=== PATIENT | female | born 1955 | race Caucasian/White ===

== ENCOUNTER 2020-10-17 10:30 | Outpatient (RCR) | payer OTHER, SELFPAY ==
--- NOTE | 2020-09-20 16:57 | HP.PTEVAL ---
Patient's Visit Information ASTON NAPOLES is a 65 year old F referred to Physical Therapy by Dr. Addison Garrison DPM with a diagnosis of B achilles tendonitis. Date of Evaluation: 09/20/20 Physical Therapist: Russ Sterling DPT - Visit Plan Frequency: 2x /Week Duration: 4 Weeks Plan: Start with graston DN followed by stretching of G/S complex. Progress eccentric strengtheing of G/S complex allowing for increased tissue loading of achilles tendon. - Subjective Pt. is here today for her initial evaluation for diagnosis of B achilles tendonitis. Pt. reports that most of her symptoms are on the LLE, but does have some pain on the R side at times. Pt. reports having pain for a few years, but has been noticing increased pain in her L leg over the past few months. She denies [facility] of [facility], no N/T. Pt. has had Xrays- showing B calcaneal heel spuring, L worse than R. Pt. reports being less active recently, as she used to walk recreationally, but stopped with COVID, pain and she used to walk her dog (which is no unable to walk well). Pain is mostly in LLE at distal end of achilles. Pt. has increased pain with walking, stairs, worse in the AMs. Pt. has not tried stretching, but has basically reduced irritants. She did have a L knee arthoscopy ~1 year previously. pt. is hopeful to improved symptoms in order to get back to all recreational walking and activities without limitations. - Pain L achilles tendon Pain Intensity (Out of 10): 3 Pain Intensity Range: 1, 8 R achilles Pain Intensity (Out of 10): 0 Pain Intensity Range: 0, 4 - Objective POSTURE: Pt. has decent posture in stance. Pt. has slight toeing out B in stance. Pt. is lacking slight TKE bilaterally, equal wt. shifting noted. PALPATION: Pt. has tenderness at distal ends of B achilles, She has a marked what feels to be a george hypertrophy in the L side at superior aspect of calcaneus. NEURO: normal DTR and sensation to light touch of BLEs. ROM: Pt. has full ROM of R ankle, slight tightness of L ankle into DF 8deg active and 12deg passive. L Knee ROM 0-3-122deg. R knee 0-0-127deg. MMT: Pt. has good strength throughout BLEs, ankle 5/5 throughout; knee- 5/5 throughout Bilat. HIp- flexion 4/5 bilat, abd 4/5 bilat, ext 4/5 bilat. GAIT: Pt. ambulates with good initial contact with her heels bilaterally, she has minimal if any over pronation during stance phase. She does have slight toeing out bilaterally and good forefoot rocker moment with slight early heel off on L side. - Goals Goal 1:: LTG: pt. to be I with HEP. Goal Time Frame: 4-6 Weeks Goal 2:: STG: pt. to have decreased pain to 0-2/10 with initial walking in AMs. Goal Time Frame: 2 Weeks Goal 3:: LTG:Pt. to ambulate unlimited distances with 0-2/10 pain in B achilles allowing for increased quality of life. Goal Time Frame: 4-6 Weeks Goal 4:: LTG: Pt. be able to negotiate steps with 1 HR with reciprocal pattern without increase in symptoms. Goal Time Frame: 4-6 Weeks - Rehabilitation Potential Physical Therapy Diagnosis: Pt. has signs and symptoms of B achilles tendonitis with L worse than R. Pt. has some tightness in her L gastroc/soleus complex, increased george growth at L calcaneus and pain with walking/standing. Pt. would benefit from PT to work on increasing tissue loading of achilles (eccentrically) to build tissue tolerance, stretching G/S complex and modalities to reduce short term symptoms. Rehabilitation Potential: Excellent - Anticipated Interventions Patient/Client Instruction: Educate patient on: Condition, Plan of Care, Risk Factors, Benefits of Fitness Program For the Purpose of:: To facilitate caregiver knowledge, To improve self management, To prevent re-injury, To improve ability to perform tasks related to life management, To improve tolerance to ADL's Therapeutic Exercise to Include: Strength training, Power training, Body mechanics, Postural training, Flexibilty training, Gait and locomotor training, Passive ROM, Active ROM For the Purpose of:: To decrease pain, To decrease swelling/inflammation, To increase ROM, To improve nutrient delivery to tissue, To increase oxygenation perfusion, To improve muscle performance and motor function, To improve gait and locomotor functions, To improve health of tissue, To decrease soft tissue restriction, To increase flexibility/ROM Manual Therapy Techniques to Include: Passive ROM, Functional dry needling, Soft tissue mobilization For the Purpose of:: To decrease pain, To decrease swelling/inflammation, To increase ROM, To improve nutrient delivery to tissue Ultrasound (thermal/non thermal): Yes For the Purpose of:: To decrease pain, To decrease swelling/inflammation, To increase ROM, To improve nutrient delivery to tissue Thank you for the opportunity to evaluate your patient. For Medicare and Medicare HMO plans, please review the plan of care and approve it. It will need to be FAXED BACK to us at [phone] for Medicare purposes. For Medicare only, by signing this I certify the plan of care. Please let me know if there are questions or concerns regarding this plan of care. Physician Signature: Date:
== END 2020-10-17 19:00 | disposition home or self-care (01) ==
LOC: PT 10:30
PROVIDERS: PCP Internal Medicine; Referring Provider Podiatrist; Visit Provider Podiatrist
DX: M76.61 Achilles tendinitis, right leg (principal); M76.62 Achilles tendinitis, left leg
CPT/HCPCS: 97035; 97110; 97161

== ENCOUNTER 2020-10-18 09:33 | Emergency (ER) | payer OTHER, SELFPAY ==
[2020-10-18 09:34] VITALS: BP 145/101; PULSE 101; RESP 17; TEMP 37.3; O2SAT 98; BMI 36.5
--- NOTE | 2020-10-18 09:50 | ED.DCSUM_ITS ---
History of Present Illness Chief Complaint: Allergic Reaction Informant: Patient Onset: Days Maximum Severity: Mild Narrative: The patient presents complaining that after she took a nitrofurantoin antibiotic tablet for UTI few hours later she began having signs of facial swelling tongue swelling diarrhea. She took Benadryl presents today reporting no symptoms are better she still has UTI symptoms. She is not having dysuria and frequency for a number of days she has been unable to actually see her provider so they sent in a prescription for nitrofurantoin as she has no allergies she took 1 pill 4 PM yesterday a few hours later began having the symptoms that again have simply resolved. She indicates she is back to her baseline but is concerned she still has a UTI she is prone to UTIs, she is having no back pain no fever no abdominal pain no cough no vaginal bleeding or vaginal discharge, she has had distant [employer] vaginal checks Pap smears that were unremarkable Past Medical History - Allergies and Home Meds Allergies/Adverse Reactions: Allergies latex Allergy (Verified 10/18/20 09:34) Rash nitrofurantoin [From Macrobid] Allergy (Verified 10/18/20 09:34) Angioedema Primary Care Physician: Vikki Smith DO [Primary Care Provider] - Past Medical History: - - Hypertension UTIs Review of Systems General: Denies: Chills, Fever, Sweats Eyes: Denies: Visual changes - bilaterally, Diplopia ENT: Denies: Rhinorrhea, Sore throat Cardiovascular: Denies: Chest pain, Palpitations Respiratory: Denies: Dyspnea, Cough, Dyspnea on exertion Gastrointestinal: Denies: Abdominal pain, Nausea, Vomiting, Diarrhea, Melena, Hematochezia Genitourinary: Reports: Dysuria, Frequency. Denies: Hematuria Musculoskeletal: Denies: Back pain, Extremity Pain Skin: Denies: Rash, Wounds Neurological: Denies: Headache, Weakness, Numbness Physical Exam Vital Signs/Narrative: Vital Signs Temp Pulse Resp BP Pulse Ox 10/18/20 09:34 99.2 F H 101 H 17 145/101 H 98 General: Well nourished, Well developed, No Acute Distress Head: Normocephalic, Atraumatic Eyes: Perrl, EOMI ENT: Moist mucous membranes, No rhinorrhea Neck: Supple, Nontender Cardiovascular: Regular rate, Regular rhythm, No murmurs Respiratory: No distress, CTA bilaterally, Chest nontender Abdomen: Soft, Nontender, Nondistended, Normal bowel sounds Back: Nontender, Normal Inspection Extremities: Nontender, No edema Skin: Normal color, No rash Neurological: Alert, Oriented x3, Cranial nerves II-XII grossly intact, Normal Strength, Normal Sensation Psychological: Normal affect, Normal Mood Diagnostic/Tx/Re-eval - Medical Decision Making The patient's HEENT exam is unremarkable her tongue tissue mouth pharynx unremarkable no signs of swelling or edema neck supple lungs clear phonation normal skin exams unremarkable as is the back abdomen completely unremarkable, her only complaint at this time is the dysuria and frequency, she has been taking Benadryl, please note that she indicates nothing else could have caused the above symptoms as it was temporally related to the nitrofurantoin dose all other medications food activities have been unchanged I have asked her to provide a urine sample for UA and culture she states she just voided urine she cannot do that she simply wants the antibiotics changed she will stay on the Benadryl follow-up with outpatient providers and return for change in symptoms otherwise she indicates she prefers to see her outpatient providers for further management of all the above she will obviously stop the antibiotic nitrofurantoin Home stable Final impression urinary tract infection by history ED Disposition - Plan for ED Patient: Diagnosis: UTI (urinary tract infection) Instructions: ED Angioedema, ED General Allergic Reactions, ED CYSTITIS Female Adult Prescriptions: Cephalexin [Keflex] 500 mg PO Q6 #30 cap Prescription Printed Referrals: Vikki Smith DO [Primary Care Provider] -
== END 2020-10-18 10:35 | disposition home or self-care (01) ==
LOC: ED 10:29
PROVIDERS: Emergency Provider Emergency Medicine; PCP Internal Medicine
DX: R19.7 Diarrhea, unspecified (principal); R22.0 Localized swelling, mass and lump, head; T37.8X5A Adverse effect of other specified systemic anti-infectives and antiparasitics, initial encounter; Y92.9 Unspecified place or not applicable; N39.0 Urinary tract infection, site not specified; Z87.440 Personal history of urinary (tract) infections
CPT/HCPCS: 99282

== ENCOUNTER → 2020-11-04 12:48 | Outpatient (CLI) | payer OTHER, SELFPAY ==
[2020-10-18 09:34] VITALS: BMI 36.5
[2020-11-04 13:38] LABS: Color, Urine Straw (Yellow); Glucose, Dipstick Normal (Normal); Ketone-Dipstick Negative (Negative); Leukocyte Esterase-Dipstick 500 /ul (Negative); Nitrite-Dipstick Positive (Negative); Occult Blood-Urine 50 /ul (Negative); Protein-Dipstick 15 mg/dl (Negative); Specific Gravity, Urine 1.015 (1.002-1.030); Urine Bilirubin Dipstick Negative (Negative); Urine Clarity Cloudy (Clear); Urine Urobilinogen Normal (Normal)
== END ==
PROVIDERS: PCP Internal Medicine; Referring Provider Nurse Practitioner; Visit Provider Nurse Practitioner
DX: R35.0 Frequency of micturition (principal)
CPT/HCPCS: 81002; 87077; 87086; 87088; 87186

== ENCOUNTER → 2020-11-08 11:00 | Outpatient (CLI) | payer OTHER, SELFPAY ==
[2020-10-18 09:34] VITALS: BMI 36.5
--- NOTE | 2020-11-08 11:01 | BI_ITS ---
MAMMOGRAPHY - BILATERAL SCREENING REASON FOR EXAM: Female, 65 years old. Routine annual screening examination. PERTINENT HISTORY: Non-contributory. TECHNIQUE: Digital bilateral breast yamilex (3D mammographic acquisition) in the CC and MLO projections. 2-D mediolateral oblique (MLO) and craniocaudad (CC) views of both breasts were obtained. CAD: Full Field Digital Mammography with Computer Added Detection was performed. COMPARISON: Comparison is made with prior study dated 07/15/2007. FINDINGS: Breast Composition: There are scattered areas of fibroglandular density. There are no dominant masses or suspicious calcifications. No other significant abnormalities are identified. There has been no significant change since the prior study. BI/SCREEN MAMM (CAD) W/YAMILEX BILAT IMPRESSION: Stable bilateral screening mammogram. Yearly follow-up mammogram recommended. (A) ASSESSMENT CATEGORY: BIRADS Category 1: Negative. A letter regarding these results will be sent to the patient by the facility within 30 days. Approximately 10% of breast cancers are not detected by mammography. A normal mammogram should not delay biopsy of a clinically suspicious abnormality. [id number] Electronically Signed: Harry Martins, at 12:21 EST , Service support ,
== END ==
PROVIDERS: PCP Internal Medicine; Referring Provider Internal Medicine; Visit Provider Internal Medicine
DX: Z12.31 Encounter for screening mammogram for malignant neoplasm of breast (principal)
CPT/HCPCS: 77063; 77067

== ENCOUNTER → 2021-03-28 10:39 | Outpatient (CLI) | payer OTHER, SELFPAY ==
--- NOTE | 2021-03-28 11:30 | MRI_ITS ---
STUDY: MRI LEFT ANKLE WITHOUT CONTRAST REASON FOR EXAM: Posterior heel pain for 2 years or longer. TECHNIQUE: Standardized fat and water weighted pulse sequences were obtained in all 3 orthogonal planes. COMPARISON: None. FINDINGS: There is mild edema in the medial subcutis adipose space. Normal posterior tibialis tendon. Normal flexor digitorum longus tendon. Normal flexor hallucis longus tendon. Normal peroneus longus and brevis tendons. Normal tibialis anterior tendon. Normal extensor hallucis longus tendon. Normal extensor digitorum longus tendons. There is fusiform thickening of the Achilles tendon in the watershed zone and at the Achilles tendon insertion measuring 1.3 cm in AP dimension. There is a low-grade intrasubstance partial tear of the Achilles tendon in the calcaneal insertion (inversion recovery sagittal image 12) measuring approximately 1.7 cm in length. There is mild retrocalcaneal bursitis and mild reactive bone edema in the posterior tuberosity of the calcaneus at the Achilles tendon insertion/superior aspect (inversion recovery sagittal images 11-13). There is a posterior calcaneal enthesophyte (T1 sagittal image 11). Normal plantar fascia. There is a plantar calcaneal enthesophyte. Normal intrinsic muscles of the rearfoot. Normal distal tibiofibular syndesmotic ligamentous complex. Normal lateral ligamentous complex. Normal subtalar ligaments and sinus tarsi. Normal deltoid ligamentous complexes. Normal plantar calcaneonavicular (spring) ligament. Normal tibiotalar articulation. Normal talar dome. Normal subtalar articulations. Normal talonavicular articulation. Normal calcaneocuboid articulation. Normal navicular-cuneiform articulations. MRI/Lower Ext Joint Only (Routine) IMPRESSION: Achilles tendinosis with a low-grade intrasubstance partial tear of the Achilles tendon at the Achilles tendon insertion. Mild reactive bone edema in the posterior tuberosity of the calcaneus. Mild retrocalcaneal bursitis. Plantar and posterior calcaneal enthesophytes. Electronically Signed: Catracho Roberson MD at 12:36 EDT Tel , Service support ,
== END ==
PROVIDERS: PCP Family Medicine; Referring Provider Podiatrist; Visit Provider Podiatrist
DX: M76.62 Achilles tendinitis, left leg (principal); M77.32 Calcaneal spur, left foot; S86.012A Strain of left Achilles tendon, initial encounter
CPT/HCPCS: 73721

== ENCOUNTER 2022-12-11 19:37 | Inpatient (IN) | payer MEDICARE, SELFPAY ==
[2022-12-11] VITALS (22 sets, daily range): BP systolic 31–208; BP diastolic 19–108; PULSE 80–124; RESP 12–22; TEMP 36.2–36.6; O2SAT 96–100; BMI 30.2; BMI 33.5
--- NOTE | 2022-12-11 19:40 | EKG12_ITS ---
Test Reason : Blood Pressure : / mmHG Vent. Rate : 088 BPM Atrial Rate : 088 BPM P-R Int : 184 ms QRS Dur : 084 ms QT Int : 398 ms P-R-T Axes : 031 000 044 degrees QTc Int : 481 ms Normal sinus rhythm Minimal voltage criteria for LVH, may be normal variant ( R in aVL ) Nonspecific ST abnormality Abnormal ECG Confirmed by ENZO HERNANDEZ, ANANYA ([id number]), publication editor BARBIE JAIME ([id number]) on 12/12/2022 2:49:07 PM Referred By: Confirmed By:ANANYA GIRALDO MD
[2022-12-11] MEDS: Etomidate 20 MG/10 ML Vial IV (19:48)
[2022-12-11] MEDS: Succinylcholine Chloride 200 MG/10 ML Vial 80 MG IV (19:49)
[2022-12-11 19:52] LABS: Absolute Lymphocyte Count 3.15 X10^3/uL (0.83-4.51); Absolute Neutrophil Count 5.6 X10^3/uL (2.0-7.7); Basophil# 0.07 X10^3/uL; Basophil% 0.7 % (0-1); Eosinophil# 0.37 X10^3/uL; Eosinophils% 3.7 % (0-5); Hematocrit 43.3 % (37-47); Hemoglobin 14.3 g/dL (12.0-15.0); Lymphocyte # 3.15 X10^3/ul (0.83-4.51); Lymphocyte % 31.2 % (19-41); Mean Corpuscular Hgb 30.4 pg (27.0-32.0); Mean Corpuscular Volume 91.9 fL (81-99); Mean Platelet Vol. 10.1 fl (6.2-12.0); Monocyte# 0.89 X10^3/uL; Monocyte% 8.8 % (0-10); NRBC Flagged by Analyzer 0 % (0-5); Neutrophil # 5.59 X10^3/uL (2.7-7.7); Neutrophil % 55.2 % (47-70); Platelet Count 276 K/mm3 (150-450); RBC Distribution Width CV 13.1 % (11.6-14.6); RBC Distribution Width SD 43.8 fl (35.1-43.9); Red Blood Count 4.71 M/mm3 (4.2-5.4); White Blood Count 10.1 K/mm3 (4.4-11.0)
[2022-12-11] MEDS: 0.9% Normal Saline 1,000 ML 150 ML IV (19:52)
[2022-12-11 20:07] LABS: Anion Gap 7 (5-15); BUN 35 mg/dL (7-18); BUN/Creat Ratio 19.7 RATIO (10-20); Calcium,Total 9.6 mg/dL (8.5-10.1); Chloride 105 mmol/L (98-107); Creatinine, Serum 1.78 mg/dL (0.55-1.02); EST Glomerular Filtration Rate 30 mL/min (>60); Est Glom Filt Rate - Afr Amer 37 mL/min (>60); Estimated Creatinine Clearance 27.21 ml/min; Glucose 109 mg/dL (74-106); Potassium 4.3 mmol/L (3.5-5.1); Sodium Level 138 mmol/L (136-145)
[2022-12-11] MEDS: Propofol 10MG/Ml 1,000 MG/100 ML Bottle 4.8 MG CONT INF (20:17)
--- NOTE | 2022-12-11 20:22 | EX.ED.DYSGE1 ---
HPI History of Present Illness Chief Complaint: Allergic Reaction Detail of Chief Complaint: Tongue swelling Onset/Context/Timing Onset: Hours (Less than 1 hour prior to presentation) Context: Sudden Onset Timing: Continuous Quality: Angioedema Location: Tongue, submental region Current Severity: Moderate Maximum Severity: Severe Worsened by: BREEZY inhibitor Relieved by: Nothing Associated Symptoms Associated Symptoms: Dysphonia, trouble swallowing, drooling Narrative Narrative: Patient presented as a swelling of her tongue, face, neck and change in voice and difficulty swallowing. Patient's denies prior reaction to blood pressure medicine. She did not have any thing to eat as far as nuts, berries or shellfish. She denies rash. She denies itching. She has no other complaints. Prior similar symptoms: No Recent Illness/Hospitalization: No PFSH PFSH Medical History HTN (hypertension) Home Medications cephalexin 500 mg capsule 500 mg PO Q6 #30 caps 10/18/20 [Rx Last Taken Unknown] Allergy/AdvReac Type Severity Reaction Status Date / Time benazepril Allergy Anaphylaxis Verified 12/11/22 19:41 latex Allergy Rash Verified 12/11/22 19:41 nitrofurantoin Allergy Angioedema Verified 12/11/22 19:41 [From Macrobid] Family History unable to obtain unable to obtain Surgical History unable to obtain unable to obtain Social History (Updated 12/11/22 @ 20:[address] Ayad De La Vega MD) household members: spouse Smoking Status: Unknown if ever smoked ROS ROS ED Review of Systems ROS Unobtainable: due to mental status and other Details: Angioedema EXAM Physical Exam Const Vital Signs: 12/11/22 19:38 12/11/22 19:50 12/11/22 19:58 Temperature 97.1 F L Temperature Source Temporal Pulse Rate 112 H 124 H Respiratory Rate 15 19 H Respiratory Effort Short of Breath Respiratory Depth Shallow Respiratory Pattern Tachypnea Blood Pressure 208/108 H Blood Pressure Mean 141 Pulse Ox 99 100 Oxygen Delivery Method Room Air 12/11/22 20:19 Temperature Temperature Source Pulse Rate 112 H Respiratory Rate 16 Respiratory Effort Respiratory Depth Respiratory Pattern Blood Pressure 119/86 H Blood Pressure Mean 97 Pulse Ox 96 Oxygen Delivery Method Mechanical Ventilator Positive well nourished, well developed and obese General Appearance ED: well developed; Negative for cyanotic, diaphoretic, NAD or pallor Nutritional Appearance: obese HEENT Reports moist mucous membranes HEENT Narrative: Patient has evidence of angioedema. Mallampati score 3 Eyes PERRL and EOMs intact bilaterally General Eye ED: Negative for pale conjunctiva or scleral icterus Neck Neck Narrative: There is submental soft tissue swelling. There is firmness to the area. Patient has biphasic stridor. Chest Wall inspection of chest normal and palpation of chest normal Resp normal respiratory effort and clear to auscultation bilaterally Cardio regular rhythm, S1 normal heart sound and S2 normal heart sound Rate: tachycardic GI normal to inspection, nondistended, normoactive bowel sounds, non-tender, non-distended and no masses; Negative for hepatosplenomegaly Extremity normal to inspection Neuro oriented x3, CN's II-XII intact bilaterally and no sensory deficits noted Sensorium / Orientation: alert Psych mental status grossly normal Skin no rashes or lesions noted, no wounds and skin turgor normal General Skin Exam: Negative for jaundice or pallor MDM MDM MDM Narrative Medical decision making narrative: Patient has angioedema due to blood pressure medicine. Patient was moved from room 19 to room 7. Order for intubation, RSI technique was placed. Difficult airway cart was obtained. Cricothyrotomy tray was placed on top of the cart. Patient was preoxygenated with oxygen on nonrebreather mask. Patient's saturation was 100%. Patient received 20 mg of etomidate followed by 80 mg of succinylcholine. Attempts were made to orotracheal intubated using glide scope. Initial attempt was with a 7 endotracheal tube. Epiglottis, arytenoids and vocal cords were seen. This became obscured due to pooling of secretions. Attempts were discontinued. She was bag valve ventilated by respiratory therapy and wv. Attempt was made again. Unable to see vocal cords. There was significant there was swelling of the arytenoids and mild swelling of the epiglottis. Unable to see vocal cords. Since vocal cords were not seen asked for assistance. Attempt at emergent cricothyrotomy was undertaken. This was unsuccessful. Airway team was called. Patient did desaturate to 74%. Able to oxygenate up to 94%. Dr. Garza from anesthesia was present. She was able to successfully intubate patient with a 6.0 endotracheal tube. There is appropriate color change on the capnometer. Patient's oxygenation is improved and 9 9%. Patient was placed on a ventilator. Respiratory is securing airway. Patient was placed on propofol and fentanyl for sedation. was made aware of complications and need for attempted emergent cricothyrotomy. He was informed that Dr. Greenberg was called and will evaluate her neck. Case was discussed with critical care, Dr. Blaine Coto. He requested Pepcid, Benadryl and Solu-Medrol. This was ordered. Will contact hospitalist for admission to ICU. Dr. Greenberg is presently in room suturing the neck incision. Dr. Jose De Jesus Abraham recommended dose of Ancef and patient to be discharged on antibiotic. He recommended 10-day course. There are no old labs for comparison. Lab Data Attestation: I reviewed the patient's lab results. Lab results narrative: CBC is unremarkable. Basic metabolic panels marked for an elevated BUN and creatinine of 35 and 1.74. Glucose is slightly evaded 109. CO2 and anion gap are normal. Labs: Laboratory Results - last 24 hr 12/11/22 12/11/22 19:30 19:30 WBC 10.1 RBC 4.71 Hgb 14.3 Hct 43.3 MCV 91.9 MCH 30.4 MCHC 33.0 RDW Std Deviation 43.8 RDW Coeff of Sj 13.1 Plt Count 276 MPV 10.1 Immature Gran % (Auto) 0.400 Neut % (Auto) 55.2 Lymph % (Auto) 31.2 Island % (Auto) 8.8 Eos % (Auto) 3.7 Baso % (Auto) 0.7 Absolute Neuts (auto) 5.6 Absolute Lymphs (auto) 3.15 Nucleated RBC % 0 Sodium 138 Potassium 4.3 Chloride 105 Carbon Dioxide 26.0 Anion Gap 7 BUN 35 H Creatinine 1.78 H Estim Creat Clear Calc 27.21 Est GFR (MDRD) Af Amer 37 L Est GFR (MDRD) Non-Af 30 L BUN/Creatinine Ratio 19.7 Glucose 109 H Calcium 9.6 Radiography Chest X-Ray - ED: 1 View and Read by ED Physician (Endotracheal tube is noted at the jordan. Orogastric tube is in the stomach. We will have nurse advance the nasogastric tube 5 to 10 cm and respiratory is pulling the endotracheal tube back 1 to 1.5 cm. This was independent reviewed interpreted by me at 2100.) EKG Initial EKG: Attestation: I personally reviewed and interpreted this EKG as follows: Interpretation: Sinus Rhythm (Rate is 88. Patient does meet LVH by voltage criteria. There is no other abnormality noted. NV interval 284 ms. QT duration 84 ms. QT durations are 98 ms. 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
--- NOTE | 2022-12-11 20:30 | ED.RN ---
DIFFICULT INTUBATION, STAT AIRWAY TEAM CALLED. DR ROBB RESPONDED AND ASSISTED DR MARIE AND DR HINSON WITH INTUBATION. DR HASTINGS RESPONDED LATER WELL.
--- NOTE | 2022-12-11 20:43 | PCM.OP.PRO ---
Assessment & Plan Assessment/Plan (1) Angioedema due to angiotensin converting enzyme inhibitor (BREEZY-I): PLAN: intubation as above. CXR pending. start IV sedation. patient should be labeled as a difficult airway until the angioedema resolves. Procedure Report Date of Procedure: 12/11/22 67yo Female presented to ER with swelling of her tongue, face, neck and change in voice and difficulty swallowing per ER notes. STAT airway team was called and I immediately arrived at bedside at 20:05. When I arrived at patient's bedside, Dr De La Vega informed me he had tried to intubate the patient with a 7.0 ETT with multiple attempts and was not successful. Prior to my arrival, patient had received per Dr De La Vega's orders Etomidate, Succinylcholine and Rocuronium 50mg. Dr De La Vega stated after not being able to visualize the cords, patient desatted to 74% and decision was made to attempt a cric. He was unable to find the membrane therefore called the STAT airway team. On my arrival, RT was bagging patient, and patient had a SPO2 in [address] De La Vega was holding pressure on the incision on patient's neck. I used the glidescope and intubated the patient with a 6.0 ETT, 1 attempt, immediate CO2 color change, bilateral breath sounds present. Grade 2-3 view. immediately SPO2 improved to 99% and then placed on ventilator. CXR pending. Dr Abraham then came to bedside to close the neck incision. Dr Galindo Garza anesthesiologist
--- NOTE | 2022-12-11 20:44 | PCM.HP.STD ---
HPI - General General Date of Admission: 12/11/22 Date of Service: 12/11/22 Chief Complaint: Tongue swelling HPI Narrative ASTON NAPOLES, is a 67 F with a significant history of hypertension on BREEZY inhibitor who presented with swelling of her tongue that started about 1 hour PTO. Associated with her symptoms Swas difficulty swallowing and change in voice. Patient's symptoms was progressively worsening. At the emergency department attempt was made to emergently intubate patient. Initial attempts to intubate was unsuccessful so cricothyroidotomy was tried . Cricothyrotomy membrane was not penetrated. Patient was eventually intubated by anesthesia with a 6 ET tube. ENT who came to bedside also sutured up patient's opened neck tissue and recommended prophylactic IV antibiotics while inpatient and for patient to be discharged home on p.o. antibiotics for a total of 10 days to prevent infection. Emergency department discussed the case with farm equipment maintenance supervisor who recommended Solu-Medrol Benadryl and Pepcid. History was taken from emergency department doctor and patient's as patient was intubated at the time of examination. [facility] Medical History (Updated 12/11/22 @ 21:[address] Vicente Cooper MD) CKD (chronic kidney disease) HTN (hypertension) Home Medications cephalexin 500 mg capsule 500 mg PO Q6 #30 caps 10/18/20 [Rx Last Taken Unknown] Allergy/AdvReac Type Severity Reaction Status Date / Time benazepril Allergy Anaphylaxis Verified 12/11/22 21:36 latex Allergy Rash Verified 12/11/22 19:41 nitrofurantoin Allergy Angioedema Verified 12/11/22 19:41 [From Macrobid] Family History unable to obtain unable to obtain (Patient is intubated. Patient does not know family medical condition.) Surgical History (Updated 12/11/22 @ 21:[address] Vicente Cooper MD) H/O section H/O knee surgery Surgical History unable to obtain Social History household members: spouse Smoking Status: Current every day smoker ROS ROS Narrative Pertinent positives and pertinent negatives as noted in HPI. All other systems were reviewed and are negative Vital Signs Vital Signs Vital Signs: 12/11/22 19:38 12/11/22 19:50 12/11/22 19:58 Temperature 97.1 F L Temperature Source Temporal Pulse Rate 112 H 124 H Respiratory Rate 15 19 H Respiratory Effort Short of Breath Respiratory Depth Shallow Respiratory Pattern Tachypnea Blood Pressure 208/108 H Blood Pressure Mean 141 Pulse Ox 99 100 Oxygen Delivery Method Room Air 12/11/22 20:19 Temperature Temperature Source Pulse Rate 112 H Respiratory Rate 16 Respiratory Effort Respiratory Depth Respiratory Pattern Blood Pressure 119/86 H Blood Pressure Mean 97 Pulse Ox 96 Oxygen Delivery Method Mechanical Ventilator Weight Weight: 79.8 kg Body Mass Index (BMI) 30.2 Physical Exam Narrative Physical exam: General: Well-nourished, well-developed. Head: Normocephalic, atraumatic, no tenderness Eyes: Intubated and sedated mechanical ventilation. Miotic pupils. Neck: Dressing on neck. Swollen tongue. CVS: Tachycardic. S1-S2 present. No murmur, gallop or rub. Respiratory : clear to auscultation bilaterally, chest wall nontender, no wheezing Abdomen: Soft, nontender, nondistended, normal bowel sounds, no masses : Spear catheter in place (placed at the ED) Back: Nontender, no CVA tenderness, no midline spinal tenderness, deformities, step-offs Extremities: Nontender full range of motion, no trauma Skin: Normal color, no trauma, abrasions Neuro: Intubated and sedated mechanical ventilation Psychiatry: Intubated and sedated mechanical ventilation Results Lab / Micro Data Result Diagrams: 12/11/22 19:30 12/11/22 19:30 Labs: Laboratory Results - last 24 hr 12/11/22 19:30: WBC 10.1, RBC 4.71, Hgb 14.3, Hct 43.3, MCV 91.9, MCH 30.4, MCHC 33.0, RDW Std Deviation 43.8, RDW Coeff of Js 13.1, Plt Count 276, MPV 10.1, Immature Gran % (Auto) 0.400, Neut % (Auto) 55.2, Lymph % (Auto) 31.2, [place] % (Auto) 8.8, Eos % (Auto) 3.7, Baso % (Auto) 0.7, Absolute Neuts (auto) 5.6, Absolute Lymphs (auto) 3.15, Nucleated RBC % 0 12/11/22 19:30: Sodium 138, Potassium 4.3, Chloride 105, Carbon Dioxide 26.0, Anion Gap 7, BUN 35 H, Creatinine 1.78 H, Estim Creat Clear Calc 27.21, Est GFR (MDRD) Af Amer 37 L, Est GFR (MDRD) Non-Af 30 L, BUN/Creatinine Ratio 19.7, Glucose 109 H, Calcium 9.6 Assessment & Plan Assessment/Plan (1) 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 Solu-Medrol, loratadine, Benadryl, and Pepcid ordered. Admit intensive care unit. Dip Filler consult Discontinue benazepril. Add BREEZY inhibitor to allergy list Placed on propofol drip and fentanyl drip at emergency department. Patient appears to be in distress so a paralytic was ordered at the ED after intubation. We will continue propofol drip and fentanyl drip. Will add Precedex drip. Hypertension Blood pressure is not within goal BREEZY inhibitor held as above.. Hydralazine ordered. CKD stage IV seeing the patient may have polycystic kidney disease but he is not 100% sure. Her creatinine on presentation was 1.78. Review of community records show that her creatinine on 10/05/2022 was 1.69; on 06/26/2022 creatinine was 1.44 and then 05/16/2022 creatinine was 1.60. Stable Trend BMP DVT prophylaxis Subcutaneous Lovenox ordered. Charges/Coding Visit Charges Inpatient E&M: 48103 Init Hosp L3
--- NOTE | 2022-12-11 20:50 | RAD_ITS ---
We are attempting to reach an attending provider to discuss findings. An addendum with communication details will be sent when the communication is complete. INDICATION: Intubation EXAMINATION/TECHNIQUE: X-RAY - XR Chest 1 View COMPARISON: None. FINDINGS: LUNGS: Left lung base atelectasis. No consolidation, edema or effusion. No pneumothorax. MEDIASTINUM AND CARDIOVASCULAR STRUCTURES: Cardiac silhouette not enlarged. Central airways and mediastinal contour are unremarkable. BONES AND SOFT TISSUES: Gas-distended bowel. RAD/Chest 1 View (Portable) IMPRESSION: The endotracheal tube protrudes slightly into the right main bronchus. This could be retracted 2 to 4 cm. Left lung base atelectasis. Gas-distended bowel suspicious for obstruction. NG tube terminates over the gastric body. Electronically Signed: Irving Carroll MD at 21:27 EST ,
--- NOTE | 2022-12-11 20:58 | PN_ITS ---
Progress Note I was called emergently by the nursing supervisor powder and primer canning for an emergent airway while not cell operation supervisor. History of present illness: The patient is a 67-year-old white female who took her blood pressure medicine this evening and noticed tongue swelling. She was taken to the emergency room by her . It was determined that she needed airway intervention and attempts at intubation were unsuccessful. An attempt at cricothyrotomy was also unsuccessful. She then underwent intubation by anesthesia with a glide scope. Upon walking into the emergency room I found that she was intubated with a 6.0 endotracheal tube and satting at 94%. Past medical history unknown Past surgical history unknown Allergies latex nitrofurantoin Meds Benzepril Social history unknown Family history unknown Review of systems unable to be taken as the patient is intubated and sedated Physical exam the patient is intubated with a 6.0 endotracheal tube. Her saturations are 94% with an unknown FiO2. There is obvious significant tongue edema, so much so that the tongue is protruding past her lower lip. There is a 3 cm horizontal incision in the neck that is actively bleeding. This was easily controlled with packing. I then Explored the wound. An arterial bleed was seen on the left-hand side. I attempted to cauterize this with hand-held cautery. This was unsuccessful. I then placed a [id number] suture into the artery with a 4-0 Vicryl and this adequately controlled the bleeding. Next, I closed the wound. The deep layers were closed with interrupted 4-0 Vicryl. The skin was closed with a running 5-0 nylon. I then placed a pressure dressing on the incision. Assessment: Angioedema with upper airway obstruction necessitating a secure airway. Plan: Because the patient had a secure airway with a 6.0 endotracheal tube I elected not to perform elective tracheotomy. She will be admitted to the ICU for steroids and antihistamines. Obviously, she can be extubated when her tongue swelling subsides. I elected to close her neck incision. She should be placed on IV antibiotics and discharged home on oral antibiotics to cover staph. If the incision becomes infected it will have to be opened anyway.
[2022-12-11] MEDS: Cefazolin 1 GM/50 ML BAG IV (21:27)
[2022-12-11] MEDS: 0.9% Normal Saline 1,000 ML 999 ML IV ×2 (21:40→23:15)
[2022-12-11] MEDS: Phenylephrine 10 MG/ML Vial 2 MG IV (23:10)
[2022-12-11 23:19] LABS: CPK Total, Creatine Kinase 100 U/L (26-192); Triglycerides 132 mg/dL
[2022-12-11 23:25] LABS: Allen Test Positive; Base Excess -4 mmol/L (-2 to +2); Bicarbonate 21.6 mmol/L (22-26); Blood Gas Specimen Type ART; FI02 50; Mode AC; O2 Delivery Device Adult Vent; PEEP 5; PO2 166 mmHG (75-100); RR 12; SITE L Radial; SO2 99 % (95-99); Total Carbon Dioxide 23 mmol/L; Vt 450; pCO2 37.7 mmHg (35-45); pH 7.37 (7.35-7.45)
[2022-12-11] MEDS: Loratadine 10 MG Tablet PO (23:29)
[2022-12-11] MEDS: Famotidine 200 MG/20 ML MDV 20 MG in 0.9% Normal Saline (Pres. free 8 ML 300 MG IV (23:30)
[2022-12-11] MEDS: Chlorhexidine 15 ML PO (23:31)
[2022-12-11] MEDS: DiphenhydrAMINE 50 MG/ML Syringe IV (23:41)
[2022-12-11] MEDS: MethylPREDNISolone 125 MG/2 ML Vial IV (23:41)
[2022-12-12] VITALS (36 sets, daily range): BP systolic 65–132; BP diastolic 37–88; PULSE 49–90; RESP 12–19; TEMP 36.4–37.1; O2SAT 91–100
[2022-12-12 04:25] LABS: Absolute Lymphocyte Count 0.67 X10^3/uL (0.83-4.51); Absolute Neutrophil Count 12.9 X10^3/uL (2.0-7.7); Basophil# 0.04 X10^3/uL; Basophil% 0.3 % (0-1); Hematocrit 38.5 % (37-47); Hemoglobin 12.7 g/dL (12.0-15.0); Lymphocyte # 0.67 X10^3/ul (0.83-4.51); Lymphocyte % 4.7 % (19-41); Mean Corpuscular Hgb 31.3 pg (27.0-32.0); Mean Corpuscular Volume 94.8 fL (81-99); Mean Platelet Vol. 10.8 fl (6.2-12.0); Monocyte# 0.48 X10^3/uL; Monocyte% 3.4 % (0-10); NRBC Flagged by Analyzer 0 % (0-5); Neutrophil # 12.93 X10^3/uL (2.7-7.7); Neutrophil % 91.1 % (47-70); POSITIVE COUNT YES; Platelet Count 240 K/mm3 (150-450); RBC Distribution Width CV 13.3 % (11.6-14.6); RBC Distribution Width SD 46.9 fl (35.1-43.9); Red Blood Count 4.06 M/mm3 (4.2-5.4); White Blood Count 14.2 K/mm3 (4.4-11.0)
[2022-12-12 04:28] LABS: Differential Indicated SCAN CRITERIA MET
[2022-12-12 04:47] LABS: Anion Gap 9 (5-15); BUN 37 mg/dL (7-18); BUN/Creat Ratio 23.1 RATIO (10-20); Calcium,Total 8.2 mg/dL (8.5-10.1); Chloride 111 mmol/L (98-107); EST Glomerular Filtration Rate 34 mL/min (>60); Est Glom Filt Rate - Afr Amer 42 mL/min (>60); Estimated Creatinine Clearance 30.27 ml/min; Glucose 165 mg/dL (74-106); Potassium 5.4 mmol/L (3.5-5.1); Sodium Level 141 mmol/L (136-145)
[2022-12-12 05:16] LABS: Differential Comment SCANNED; Platelet Estimate ADEQUATE (ADEQ)
[2022-12-12] MEDS: TITRATION PARAMETER CHANGE 1 EACH IV (07:02)
--- NOTE | 2022-12-12 07:21 | CON.PCM.CC_ITS ---
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 Continue empiric antibiotics 2. Continue Pepcid, Benadryl and steroids 3. Monitor for leak 4. Okay to initiate tube feeds 5. Wean pressors as tolerated IMPRESSIONS: 1. Acute hypoxic respiratory failure secondary to angioedema Clinical suspicion for angioedema secondary to BREEZY inhibitor. Patient appears to be doing well at this time, but intubated with a 6.0 endotracheal tube. There does appear to be clinical improvement in lip and tongue swelling. Continue to monitor for leak daily with spontaneous breathing and awakening trials. We will continue with Pepcid, Benadryl and steroids. ENT has evaluated the neck. We will monitor for complications. We will need to clarify. Patient has had multiple episodes of angioedema, work-up for hereditary angioedema may be indicated after discharge. ABG shows adequate oxygenation ventilation at this time 2. Distributive shock Clinical suspicion for distributive shock secondary to angioedema. Patient is on a minimal amount of pressors at this time. Patient is on antibiotics, but this is more for prevention of complications related to be cricothyroidotomy. Leukocytosis likely secondary to steroid therapy 3. CKD/hypertension/obesity/failed cricothyroidotomy Complicates care, management, recovery and prognosis. Patient should not receive any further BREEZY inhibitor. Continue to support blood pressure to help with renal function. Monitor urine output. We will monitor for complications of failed cricothyroidotomy TIME: 34 minutes critical care time spent addressing patient's acute hypoxic respiratory failure, angioedema, distributive shock, review of all data and collaboration with care team HPI Consult Data Date of Consult: 12/12/22 HPI Narrative Reason for Consultation: Respiratory failure HPI Narrative: ASTON NAPOLES is a 67 F, with past medical history listed below, who presents [facility] 12/11/2022 secondary to tongue swelling. Patient reportedly had developed swelling of her tongue, face and neck over the hour previous to presentation. Patient had also reported hoarseness and difficulty swallowing. Patient denied any obvious allergic exposures such as nuts, berries or shellfish. Patient had not had any rash or itching. On presentation to the emergency room, patient was afebrile, but tachycardic at 124 bpm and hypertensive at 208/108. Initial laboratory work-up showed a normal CBC and a BMP with a creatinine of 1.78 and a glucose of 109. Patient was diagnosed with angioedema and there was a determination for an advanced airway team. Initial attempt for intubation was unsuccessful. Airway became progress ively obscured, so an emergent cricothyroidotomy was attempted. Patient did desaturate to 74% during this event. Patient ultimately was able to be intubated by anesthesia with a 6.0 endotracheal tube. Patient was ultimately evaluated by Dr. Greenberg of ENT. Patient was given a dose of Ancef and admitted to the intensive care unit on Pepcid, Benadryl and Solu-Medrol. Since being in the intensive care unit, patient has done well. Patient is interacting appropriately. Bedside nurse reports there has been improvement in tongue swelling. Patient still does not have a leak and is reporting some neck soreness. It is difficult to gauge at this time, but patient is suggesting that she may have had lip and tongue swelling previously 3 times. This will need to be evaluated/clarified upon extubation. Ability to get review of systems and past history limited by intubation. [facility] Medical History CKD (chronic kidney disease) HTN (hypertension) Home Medications cephalexin 500 mg capsule 500 mg PO Q6 #30 caps 10/18/20 [Rx Last Taken Unknown] Allergy/AdvReac Type Severity Reaction Status Date / Time benazepril Allergy Anaphylaxis Verified 12/11/22 21:36 latex Allergy Rash Verified 12/11/22 19:41 nitrofurantoin Allergy Angioedema Verified 12/11/22 19:41 [From Macrobid] Family History unable to obtain Surgical History H/O section H/O knee surgery Surgical History unable to obtain Social History household members: spouse Smoking Status: Light Smoker (<10/day) ROS Review of Systems ROS Unobtainable: due to endotracheal tube Physical Exam Const alert and no apparent distress Constitutional Narrative: Good vent synchrony General Appearance: patient mechanically ventilated HEENT normocephalic HEENT Narrative: Significant tongue swelling with protrusion past incisors Mouth: endotracheal tube in place and OG tube in place Eyes PERRL, EOMs intact bilaterally, conjunctivae normal and no scleral icterus Neck Neck Narrative: Dressing noted on neck General: trachea midline Chest inspection of chest normal Resp normal respiratory effort and no use of accessory muscles Auscultation: clear to auscultation bilaterally; Negative for rales, rhonchi or wheezes Cardio regular rate, regular rhythm, S1 normal heart sound, S2 normal heart sound, no murmurs, no rub and no gallops GI normal to inspection, nondistended, normoactive bowel sounds Extremity no clubbing, cyanosis or edema Skin Skin Narrative: Incision on neck clean, dry and intact Neuro oriented x3, CN's II-XII intact bilaterally, moves all extremities and no focal motor deficits Psych cooperative and affect normal Lab / Micro Data Attestation: I reviewed the patient's lab results. Result Diagrams: 12/12/22 03:55 12/12/22 03:55 Labs: Laboratory Results - last 24 hr 12/11/22 19:30: WBC 10.1, RBC 4.71, Hgb 14.3, Hct 43.3, MCV 91.9, MCH 30.4, MCHC 33.0, RDW Std Deviation 43.8, RDW Coeff of Js 13.1, Plt Count 276, MPV 10.1, Immature Gran % (Auto) 0.400, Neut % (Auto) 55.2, Lymph % (Auto) 31.2, [place] % (Auto) 8.8, Eos % (Auto) 3.7, Baso % (Auto) 0.7, Absolute Neuts (auto) 5.6, Absolute Lymphs (auto) 3.15, Nucleated RBC % 0 12/11/22 19:30: Sodium 138, Potassium 4.3, Chloride 105, Carbon Dioxide 26.0, Anion Gap 7, BUN 35 H, Creatinine 1.78 H, Estim Creat Clear Calc 27.21, Est GFR (MDRD) Af Amer 37 L, Est GFR (MDRD) Non-Af 30 L, BUN/Creatinine Ratio 19.7, Glucose 109 H, Calcium 9.6 12/11/22 19:30: Total Creatine Kinase 100, Triglycerides 132 12/12/22 03:55: WBC 14.2 H, RBC 4.06 L, Hgb 12.7, Hct 38.5, MCV 94.8, MCH 31.3, MCHC 33.0, RDW Std Deviation 46.9 H, RDW Coeff of Js 13.3, Plt Count 240, MPV 10.8, Immature Gran % (Auto) 0.500, Neut % (Auto) 91.1 H, Lymph % (Auto) 4.7 L, [place] % (Auto) 3.4, Eos % (Auto) 0.0, Baso % (Auto) 0.3, Absolute Neuts (auto) 12.9 H, Absolute Lymphs (auto) 0.67 L, Nucleated RBC % 0, Differential Comment SCANNED, Platelet Estimate ADEQUATE 12/12/22 03:55: Sodium 141, Potassium 5.4 H, Chloride 111 H, Carbon Dioxide 21.0, Anion Gap 9, BUN 37 H, Creatinine 1.60 H, Estim Creat Clear Calc 30.27, Est GFR (MDRD) Af Amer 42 L, Est GFR (MDRD) Non-Af 34 L, BUN/Creatinine Ratio 23.1 H, Glucose 165 H, Calcium 8.2 L ABG Data ABG results: ABG 12/11/22 23:19 Specimen Type ART Sample Site L Radial pH 7.37 Bicarbonate Actual 21.6 L Total CO2 23 Base Excess -4 L O2 Saturation 99 O2 % 50 ABG pCO2 37.7 ABG pO2 166 H Hua Test Positive Respiration Rate 12 O2 Delivery Device Adult Vent Vent Mode AC Tidal Volume 450 POC PEEP 5 Attestation: I personally reviewed and interpreted this ABG as follows: (Mild metabolic acidosis with respiratory compensation) Radiology Impression Chest X-Ray 12/11/22 20:50 IMPRESSION: The endotracheal tube protrudes slightly into the right main bronchus. This could be retracted 2 to 4 cm. Left lung base atelectasis. Gas-distended bowel suspicious for obstruction. NG tube terminates over the gastric body. Electronically Signed: Irving Carroll MD at 21:27 EST , ADDENDUM: 12/11/22 7501 IMPRESSION: The endotracheal tube protrudes slightly into the right main bronchus. This could be retracted 2 to 4 cm. Left lung base atelectasis. Gas-distended bowel suspicious for obstruction. NG tube terminates over the gastric body. N.B. : The above Results were Read Back by Irving Carroll MD to Ayad De La Vega MD, and understanding confirmed on 12/11/2022 21:39:02 (ET). Electronically Signed: Irving Carroll MD at 21:27 EST , Charges/Coding Procedures Hospitalists Procedures: [id number] [facility]
--- NOTE | 2022-12-12 08:50 | PN.HOSP_ITS ---
Subjective Subjective Intubated and sedated, no issues overnight Objective Data Objective Data Vital Signs: Vital Signs Temp Pulse Resp BP Pulse Ox O2 Del Method FiO2 98.2 F 61 12 99/61 100 Mechanical Ventilator 30 12/12/22 06:04 12/12/22 07:08 12/12/22 07:08 12/12/22 07:00 12/12/22 07:08 12/12/22 07:00 12/12/22 07:08 Oxygen Delivery Method Mechanical Ventilator Weight: 195 lb 1.745 oz Body Mass Index (BMI) 33.5 Intake & Output: Intake and Output for Last 24 Hours 12/11/22 12/12/22 12/13/22 03:59 03:59 03:59 Intake Total 3160.33 / 3225.26 146.48 / 146.48 Output Total 1000 / 1000 Balance 3160.33 / 3225.26 -853.52 / -853.52 Lab / Micro Data Result Diagrams: 12/12/22 03:55 12/12/22 03:55 Labs: Laboratory Results - last 24 hr 12/11/22 19:30: WBC 10.1, RBC 4.71, Hgb 14.3, Hct 43.3, MCV 91.9, MCH 30.4, MCHC 33.0, RDW Std Deviation 43.8, RDW Coeff of Js 13.1, Plt Count 276, MPV 10.1, Immature Gran % (Auto) 0.400, Neut % (Auto) 55.2, Lymph % (Auto) 31.2, [place] % (Auto) 8.8, Eos % (Auto) 3.7, Baso % (Auto) 0.7, Absolute Neuts (auto) 5.6, A bsolute Lymphs (auto) 3.15, Nucleated RBC % 0 12/11/22 19:30: Sodium 138, Potassium 4.3, Chloride 105, Carbon Dioxide 26.0, Anion Gap 7, BUN 35 H, Creatinine 1.78 H, Estim Creat Clear Calc 27.21, Est GFR (MDRD) Af Amer 37 L, Est GFR (MDRD) Non-Af 30 L, BUN/Creatinine Ratio 19.7, Glucose 109 H, Calcium 9.6 12/11/22 19:30: Total Creatine Kinase 100, Triglycerides 132 12/12/22 03:55: WBC 14.2 H, RBC 4.06 L, Hgb 12.7, Hct 38.5, MCV 94.8, MCH 31.3, MCHC 33.0, RDW Std Deviation 46.9 H, RDW Coeff of Js 13.3, Plt Count 240, MPV 10.8, Immature Gran % (Auto) 0.500, Neut % (Auto) 91.1 H, Lymph % (Auto) 4.7 L, [place] % (Auto) 3.4, Eos % (Auto) 0.0, Baso % (Auto) 0.3, Absolute Neuts (auto) 12.9 H, Absolute Lymphs (auto) 0.67 L, Nucleated RBC % 0, Differential Comment SCANNED, Platelet Estimate ADEQUATE 12/12/22 03:55: Sodium 141, Potassium 5.4 H, Chloride 111 H, Carbon Dioxide 21.0, Anion Gap 9, BUN 37 H, Creatinine 1.60 H, Estim Creat Clear Calc 30.27, Est GFR (MDRD) Af Amer 42 L, Est GFR (MDRD) Non-Af 34 L, BUN/Creatinine Ratio 23.1 H, Glucose 165 H, Calcium 8.2 L ABG Data ABG results: ABG 12/11/22 23:19 Specimen Type ART Sample Site L Radial pH 7.37 Bicarbonate Actual 21.6 L Total CO2 23 Base Excess -4 L O2 Saturation 99 O2 % 50 ABG pCO2 37.7 ABG pO2 166 H Hua Test Positive Respiration Rate 12 O2 Delivery Device Adult Vent Vent Mode AC Tidal Volume 450 POC PEEP 5 Radiography Diagnostic Testing: Radiology Impression Chest X-Ray 12/11/22 20:50 IMPRESSION: The endotracheal tube protrudes slightly into the right main bronchus. This could be retracted 2 to 4 cm. Left lung base atelectasis. Gas-distended bowel suspicious for obstruction. NG tube terminates over the gastric body. Electronically Signed: Irving Carroll MD at 21:27 EST , ADDENDUM: 12/11/22 3302 IMPRESSION: The endotracheal tube protrudes slightly into the right main bronchus. This could be retracted 2 to 4 cm. Left lung base atelectasis. Gas-distended bowel suspicious for obstruction. NG tube terminates over the gastric body. N.B. : The above Results were Read Back by Irving Carroll MD to Ayad De La Vega MD, and understanding confirmed on 12/11/2022 21:39:02 (ET). Electronically Signed: Irving Carroll MD at 21:27 EST , Physical Exam Const General Appearance: intubated and patient mechanically ventilated HEENT normocephalic Eyes PERRL and conjunctivae normal Neck supple and no JVD Resp normal respiratory effort, no retractions and no use of accessory muscles Auscultation: wheezes; Negative for crackles, rales or rhonchi Cardio regular rate, regular rhythm, S1 normal heart sound, S2 normal heart sound and no murmurs GI soft to palpation and non-distended; Negative for hepatosplenomegaly Extremity no clubbing, cyanosis or edema Skin no rashes or lesions noted Neuro Sensorium / Orientation: sedated on vent Psych Appearance: intubated Assessment & Plan Assessment/Plan (1) 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 Distributive shock and acute hypoxic respiratory failure from angioedema ? The angioedema is likely secondary to her BREEZY inhibitor ? The had difficulty intubating in the ER and they attempted a cricothyrotomy without success, anesthesia was called to intubate and ENT was called to repair the incision to the neck ? Continue with pressor support as well as antibiotics ? Continue with Precedex and IV fluids ? 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 Continue with sodium and Pepcid 2. HTN/CKD 3B ? She was on lisinopril for hypertension, we will obviously discontinue ? Monitor renal function, creatinine appears to be at baseline DVT: Lovenox Charges/Coding Visit Charges Inpatient E&M: 07399 Subs Hosp L2
--- NOTE | 2022-12-12 10:15 | CASEMGMT ---
RN?CM?PERSONNEL ASSOCIATE?CM?to room to meet with patient and for initial transition planning/care coordination?assessment.?RN?CM?introduced self and role at [facility].? Pt sitting up in recliner chair, intubated. Pt still working w/therapy at this time. @ bedside The following info provided by both and pt. Care providers, pharmacy, and demographics verified/updated at this time. PCP: Marquita Telles Specialists: Dr Mata-health care social worker @ [facility] Preferred Pharmacy: [facility] Insurance: [place] MCR Prescription Benefit:?Yes Living Will/HPOA:? Pt has LW and HCPOA, who is her , Neville LNOK: , Neville. 2 sons. Living Arrangements: Lives w/ in one-story home w/ 3 steps to enter. Independent. Transportation:?Pt and both drive. DME: Pt uses no DME. HHC/SNF: No hx of either. No needs identified at this time. Per PT/OT, they anticipate pt will return to baseline/independent once extubated. Pt and wish for pt to return home and states has no concerns with going home at time of discharge.??CM?to follow for any discharge planning/needs.? voices no concerns/needs at this time.? Advised them to ask for?CM?if any questions/concerns/needs arise.? Voices understanding. PLAN:??Home w/spousal support and discharge plans in place. Tomasa VILLEGASN?RN?CM
[2022-12-12] MEDS: Chlorhexidine 15 ML PO ×2 (10:26→20:58)
[2022-12-12] MEDS: Enoxaparin 40 MG/0.4 ML Syringe SC (10:27)
[2022-12-12] MEDS: Famotidine 20 MG Tablet GT ×2 (10:28→20:58)
[2022-12-12] MEDS: Loratadine 10 MG Tablet PO (10:34)
--- NOTE | 2022-12-12 13:06 | CHAPLAIN ---
Type of Pastoral Visit _x__ Initial Visit ___ Follow-up Visit ___ On-call Visit ___ General Patient Visit ___ Spiritual Assessment ___ Family Conference ___ Bereavement ___ Rapid Response ___ Code Blue ___ Other (describe below) Pastoral Care Referral From _x__ Patient ___ Family ___ Nurse ___ Physician ___ Concrete Analyst ___ Child Care Aide ___ Other (describe below) Sacrament/Intervention ___ Active listening ___ Anointing ___ Cheondoism ___ Bereavement ___ Communion ___ Veronique exploration ___ ___ Life review _x__ Prayer ___ Reconciliation ___ Sacrament of Sick _x__ Supportive presence ___ Wedding ___ Other (describe below) Pastoral Comments patient is intubated but alert; spouse is at her side; spouse speaks and patient writes her request for a prayer; pt will require time for return to normal but both appear with positive outlook; pt has a hoahaoism for support
[2022-12-12] MEDS: 0.9% Normal Saline 1,000 ML 75 ML IV (14:38)
[2022-12-12] MEDS: Vital AF 1.2 Cal Liquid 1,000 ML 55 ML GT (14:38)
--- NOTE | 2022-12-12 19:47 | NURSING ---
Levophed infusion on hold at time of shift change report.
[2022-12-13] VITALS (28 sets, daily range): BP systolic 84–151; BP diastolic 48–87; PULSE 46–114; RESP 10–27; TEMP 36.3–37.1; O2SAT 93–100
[2022-12-13 03:40] LABS: Absolute Lymphocyte Count 0.73 X10^3/uL (0.83-4.51); Absolute Neutrophil Count 9.2 X10^3/uL (2.0-7.7); Basophil# 0.01 X10^3/uL; Basophil% 0.1 % (0-1); Hematocrit 34.5 % (37-47); Hemoglobin 10.8 g/dL (12.0-15.0); Lymphocyte # 0.73 X10^3/ul (0.83-4.51); Lymphocyte % 6.9 % (19-41); Mean Corp Hgb Conc 31.3 g/dL (32-36); Mean Corpuscular Hgb 30.1 pg (27.0-32.0); Mean Corpuscular Volume 96.1 fL (81-99); Mean Platelet Vol. 10.6 fl (6.2-12.0); Monocyte# 0.68 X10^3/uL; Monocyte% 6.4 % (0-10); NRBC Flagged by Analyzer 0 % (0-5); Neutrophil # 9.17 X10^3/uL (2.7-7.7); Neutrophil % 86.1 % (47-70); Platelet Count 185 K/mm3 (150-450); RBC Distribution Width CV 13.2 % (11.6-14.6); RBC Distribution Width SD 47.7 fl (35.1-43.9); Red Blood Count 3.59 M/mm3 (4.2-5.4); White Blood Count 10.6 K/mm3 (4.4-11.0)
[2022-12-13 03:56] LABS: Anion Gap 5 (5-15); BUN 38 mg/dL (7-18); BUN/Creat Ratio 27.1 RATIO (10-20); Calcium,Total 8.1 mg/dL (8.5-10.1); Chloride 116 mmol/L (98-107); EST Glomerular Filtration Rate 40 mL/min (>60); Est Glom Filt Rate - Afr Amer 48 mL/min (>60); Estimated Creatinine Clearance 34.59 ml/min; Glucose 201 mg/dL (74-106); Potassium 4.6 mmol/L (3.5-5.1); Sodium Level 143 mmol/L (136-145)
[2022-12-13] MEDS: 0.9% Normal Saline 1,000 ML 75 ML IV (03:58)
[2022-12-13] MEDS: 0.9% Saline Lock 10 ML Syringe IV ×2 (04:01→20:10)
--- NOTE | 2022-12-13 06:25 | NURSING ---
Pt successfully extubated around 0600 to 2 L NC.
--- NOTE | 2022-12-13 06:53 | PCM.PN.INT ---
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 Continue empiric antibiotics 2. Continue Pepcid, Benadryl and steroids 3. Speech therapy to evaluate swallow 4. Discontinue sedation 5. Potentially add p.o. pain meds if necessary IMPRESSIONS: 1. Acute hypoxic respiratory failure secondary to angioedema Clinical suspicion for angioedema secondary to BREEZY inhibitor. Patient with much improved swelling in the face and tongue. Patient was able to have a leak this morning and will be extubated. We will have speech therapy evaluate the patient given the angioedema and failed cricothyrotomy. Wean supplemental oxygen as tolerated. 2. Distributive shock Resolved. Clinical suspicion for distributive shock secondary to angioedema. Patient is on a no pressors at this time. Patient is on antibiotics, but this is more for prevention of complications related to be cricothyroidotomy. Leukocytosis likely secondary to steroid therapy 3. CKD/hypertension/obesity/failed cricothyroidotomy Complicates care, management, recovery and prognosis. Patient should not receive any further BREEZY inhibitor. Continue to support blood pressure to help with renal function. Monitor urine output. We will monitor for complications of failed cricothyroidotomy TIME: 32 minutes critical care time spent addressing patient's acute hypoxic respiratory failure, angioedema, distributive shock, review of all data and collaboration with care team Subjective Subjective Patient did okay overnight. No acute issues were reported. Patient has been able to be taken off of Levophed through the course of the evening. Patient denies any chest pain. Objective Data Objective Data Vital Signs: Vital Signs Temp Pulse Resp BP Pulse Ox O2 Del Method O2 Flow Rate 36.7 C 48 L 18 93/49 L 96 Nasal Cannula 2 12/13/22 06:00 12/13/22 06:00 12/13/22 06:00 12/13/22 06:00 12/13/22 06:00 12/13/22 06:00 12/13/22 06:00 FiO2 21 12/13/22 06:00 Oxygen Flow Rate (L/min) 2 Oxygen Delivery Method Nasal Cannula Weight: 89 kg Body Mass Index (BMI) 33.5 Intake & Output: Intake and Output for Last 24 Hours 12/11/22 12/12/2212/13/23 23:59 23:59 23:59 Intake Total 2117.60 / 2123.60 2203.48 / 2230.88 1630.94 / 1630.94 Output Total 2295 / 2295 375 / 375 Balance 8.60 / 2123.60 -91.52 / -64.12 1255.94 / 1255.94 Lab / Micro Data Attestation: I reviewed the patient's lab results. Result Diagrams: 12/13/22 03:30 12/13/22 03:30 Labs: Laboratory Results - last 24 hr 12/13/22 03:30: WBC 10.6, RBC 3.59 L, Hgb 10.8 L, Hct 34.5 L, MCV 96.1, MCH 30.1, MCHC 31.3 L D, RDW Std Deviation 47.7 H, RDW Coeff of Js 13.2, Plt Count 185, MPV 10.6, Immature Gran % (Auto) 0.500, Neut % (Auto) 86.1 H, Lymph % (Auto) 6.9 L, [place] % (Auto) 6.4, Eos % (Auto) 0.0, Baso % (Auto) 0.1, Absolute Neuts (auto) 9.2 H, Absolute Lymphs (auto) 0.73 L, Nucleated RBC % 0 12/13/22 03:30: Sodium 143, Potassium 4.6, Chloride 116 H, Carbon Dioxide 22.0, Anion Gap 5, BUN 38 H, Creatinine 1.40 H, Estim Creat Clear Calc 34.59, Est GFR (MDRD) Af Amer 48 L, Est GFR (MDRD) Non-Af 40 L, BUN/Creatinine Ratio 27.1 H, Glucose 201 H, Calcium 8.1 L Micro: Microbiology 12/11/22 22:25 Sputum, Induced/Lukens Gram Stain - Final Physical Exam Const alert and no apparent distress General Appearance: intubated and patient mechanically ventilated HEENT normocephalic Eyes PERRL and conjunctivae normal Neck supple and no JVD Resp normal respiratory effort, no retractions and no use of accessory muscles Auscultation: Negative for rales, rhonchi or wheezes Cardio regular rate, regular rhythm, S1 normal heart sound, S2 normal heart sound, no murmurs, no rub and no gallops GI soft to palpation and non-distended; Negative for hepatosplenomegaly Extremity no clubbing, cyanosis or edema Skin no rashes or lesions noted Neuro oriented x3 and CN's II-XII intact bilaterally Psych Appearance: intubated Charges/Coding Procedures Hospitalists Procedures: 00805 Critial Care 1st Hr
[2022-12-13] MEDS: CHLORHEXIDINE GLUC 2% CLOTH 1 EACH TOWELETTE TOPICAL (08:05)
[2022-12-13] MEDS: Enoxaparin 40 MG/0.4 ML Syringe SC (08:05)
[2022-12-13] MEDS: Famotidine 20 MG Tablet GT (09:26)
[2022-12-13] MEDS: Loratadine 10 MG Tablet PO (09:26)
--- NOTE | 2022-12-13 10:13 | PCM.PN.HOSP ---
Subjective Subjective Doing well, no issues overnight. She was extubated this morning maintaining her own oxygen sats on 2 L nasal cannula Objective Data Objective Data Vital Signs: Vital Signs Temp Pulse Resp BP Pulse Ox O2 Del Method O2 Flow Rate 98.1 F 51 L 16 98/55 L 95 Nasal Cannula 2 12/13/22 06:00 12/13/22 07:00 12/13/22 07:00 12/13/22 07:00 12/13/22 07:00 12/13/22 07:00 12/13/22 07:00 FiO2 21 12/13/22 06:00 Oxygen Flow Rate (L/min) 2 Oxygen Delivery Method Nasal Cannula Weight: 196 lb 3.382 oz Body Mass Index (BMI) 33.5 Intake & Output: Intake and Output for Last 24 Hours 12/12/22 12/13/22 12/14/22 03:59 03:59 03:59 Intake Total 3160.33 / 3225.26 2371.35 / 2594.75 421.34 / 421.34 Output Total 2295 / 2295 425 / 425 Balance 3160.33 / 3225.26 76.35 / 299.75 -3.66 / -3.66 Lab / Micro Data Result Diagrams: 12/13/22 03:30 12/13/22 03:30 Labs: Laboratory Results - last 24 hr 12/13/22 03:30: WBC 10.6, RBC 3.59 L, Hgb 10.8 L, Hct 34.5 L, MCV 96.1, MCH 30.1, MCHC 31.3 L D, RDW Std Deviation 47.7 H, RDW Coeff of Js 13.2, Plt Count 185, MPV 10.6, Immature Gran % (Auto) 0.500, Neut % (Auto) 86.1 H, Lymph % (Auto) 6.9 L, [place] % (Auto) 6.4, Eos % (Auto) 0.0, Baso % (Auto) 0.1, Absolute Neuts (auto) 9.2 H, Absolute Lymphs (auto) 0.73 L, Nucleated RBC % 0 12/13/22 03:30: Sodium 143, Potassium 4.6, Chloride 116 H, Carbon Dioxide 22.0, Anion Gap 5, BUN 38 H, Creatinine 1.40 H, Estim Creat Clear Calc 34.59, Est GFR (MDRD) Af Amer 48 L, Est GFR (MDRD) Non-Af 40 L, BUN/Creatinine Ratio 27.1 H, Glucose 201 H, Calcium 8.1 L Micro: Microbiology 12/11/22 22:25 Sputum, Induced/Lukens Gram Stain - Final Physical Exam Narrative And general: Alert, Oriented x3, Cooperative, No apparent distress HEENT: Atraumatic, PERRLA, EOMI, Normocephalic, neck incision bandaged clean Oral: Moist Mucosa Neck: Supple, No JVD Lungs: Clear to auscultation, Normal air movement, No rhonchi, No wheeze, No rales Cardiovascular: Regular rate, Regular Rhythm, Normal S1, Normal S2, No murmurs Abdomen: Soft, Non Tender, Non-Distended, No Hepato-splenomegaly Extremities: No edema, Capillary Refill Less than 3 Seconds Skin: No rashes, No breakdown Musculoskeletal: No Tenderness to Palpation of Joints or Extremities Neurological: Cranial nerves II-XII grossly intact, Motor Exam 5/5 strength throughout, Sensory exam intact to light touch and pain Psych/Mental Status: Normal Affect, Appropriate Assessment & Plan Assessment/Plan (1) 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 Distributive shock and acute hypoxic respiratory failure from angioedema ? The angioedema is likely secondary to her BREEZY inhibitor ? Currently extubated and doing well ? Pressors discontinued, continue with antibiotics ? Continue with IV fluids, will obtain a speech evaluation given her throat swelling and her attempted cricothyrotomy ? 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 Continue with Solu-Medrol and Pepcid 2. HTN/CKD 3B ? She was on lisinopril for hypertension, we will obviously discontinue ? Monitor renal function, creatinine appears to be at baseline DVT: Lovenox Charges/Coding Visit Charges Inpatient E&M: 22255 Subs Hosp L2
[2022-12-13] MEDS: Acetaminophen 325 MG Tablet 650 MG PO ×2 (11:45→18:18)
[2022-12-13] MEDS: Famotidine 20 MG Tablet PO (20:10)
[2022-12-13] MEDS: MELATONIN 3 MG TABLET PO (23:11)
[2022-12-14] VITALS (11 sets, daily range): BP systolic 138–156; BP diastolic 73–98; PULSE 67–99; RESP 15–18; TEMP 36.7–37.1; O2SAT 92–100
[2022-12-14] MEDS: 0.9% Saline Lock 10 ML Syringe IV (05:47)
[2022-12-14 06:12] LABS: Absolute Lymphocyte Count 1.22 X10^3/uL (0.83-4.51); Absolute Neutrophil Count 10.5 X10^3/uL (2.0-7.7); Basophil# 0.01 X10^3/uL; Basophil% 0.1 % (0-1); Hematocrit 34.2 % (37-47); Lymphocyte # 1.22 X10^3/ul (0.83-4.51); Lymphocyte % 9.5 % (19-41); Mean Corp Hgb Conc 32.2 g/dL (32-36); Mean Corpuscular Hgb 30.6 pg (27.0-32.0); Mean Platelet Vol. 10.1 fl (6.2-12.0); Monocyte# 0.89 X10^3/uL; Monocyte% 6.9 % (0-10); NRBC Flagged by Analyzer 0 % (0-5); Neutrophil # 10.54 X10^3/uL (2.7-7.7); Neutrophil % 82.2 % (47-70); Platelet Count 201 K/mm3 (150-450); RBC Distribution Width CV 13.4 % (11.6-14.6); RBC Distribution Width SD 46.8 fl (35.1-43.9); White Blood Count 12.8 K/mm3 (4.4-11.0)
[2022-12-14 06:26] LABS: Anion Gap 8 (5-15); BUN 27 mg/dL (7-18); BUN/Creat Ratio 24.1 RATIO (10-20); Chloride 111 mmol/L (98-107); Creatinine, Serum 1.12 mg/dL (0.55-1.02); EST Glomerular Filtration Rate 52 mL/min (>60); Est Glom Filt Rate - Afr Amer 63 mL/min (>60); Estimated Creatinine Clearance 43.24 ml/min; Glucose 115 mg/dL (74-106); Potassium 4.2 mmol/L (3.5-5.1); Sodium Level 142 mmol/L (136-145)
--- NOTE | 2022-12-14 07:44 | PCM.PN.INT ---
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 Continue empiric antibiotics to complete 10 days 2. Likely discontinue Pepcid, Benadryl and steroids after today 3. Okay to discharge home 4. Follow-up with primary accounting clerks supervisor for recommendations on elevated blood pressure IMPRESSIONS: 1. Acute hypoxic respiratory failure secondary to angioedema Clinical suspicion for angioedema secondary to BREEZY inhibitor. Patient with much improved swelling in the face and tongue. Patient extubated yesterday and has been doing well. No stridor has been noted. Patient understands the concern for angioedema. 2. Distributive shock Resolved. Clinical suspicion for distributive shock secondary to angioedema. Patient is on a no pressors at this time. Patient is on antibiotics, but this is more for prevention of complications related to be cricothyroidotomy. Leukocytosis likely secondary to steroid therapy 3. CKD/hypertension/obesity/failed cricothyroidotomy Complicates care, management, recovery and prognosis. Patient should not receive any further BREEZY inhibitor. Patient likely should follow-up with primary accounting clerks supervisor for concerns of hypertension in the setting of polycystic kidney disease Subjective Subjective Patient did well overnight. No acute issues were reported. Patient subjectively feels improved. Patient does have some body aches, especially abdominal soreness, but no nausea. Objective Data Objective Data Neck is healing well. Vital Signs: Vital Signs Temp Pulse Resp BP Pulse Ox O2 Del Method O2 Flow Rate 36.9 C 85 18 145/80 H 95 Room Air 2 12/14/22 07:00 12/14/22 07:00 12/14/22 07:00 12/14/22 07:00 12/14/22 07:00 12/14/22 07:00 12/13/22 09:00 FiO2 21 12/13/22 06:00 Oxygen Flow Rate (L/min) 2 Oxygen Delivery Method Room Air Weight: 89.6 kg Body Mass Index (BMI) 33.5 Intake & Output: Intake and Output for Last 24 Hours 12/12/22 12/13/22 12/14/22 23:59 23:59 23:59 Intake Total 2203.48 / 2230.88 2389.69 / 2389.69 55 / 55 Output Total 2295 / 2295 425 / 425 Balance -91.52 / -64.12 55 / 55 Lab / Micro Data Attestation: I reviewed the patient's lab results. Result Diagrams: 12/14/22 05:50 12/14/22 05:50 Labs: Laboratory Results - last 24 hr 12/14/22 05:50: WBC 12.8 H, RBC 3.60 L, Hgb 11.0 L, Hct 34.2 L, MCV 95.0, MCH 30.6, MCHC 32.2, RDW Std Deviation 46.8 H, RDW Coeff of Js 13.4, Plt Count 201, MPV 10.1, Immature Gran % (Auto) 1.300 H, Neut % (Auto) 82.2 H, Lymph % (Auto) 9.5 L, [place] % (Auto) 6.9, Eos % (Auto) 0.0, Baso % (Auto) 0.1, Absolute Neuts (auto) 10.5 H, Absolute Lymphs (auto) 1.22, Nucleated RBC % 0 12/14/22 05:50: Sodium 142, Potassium 4.2, Chloride 111 H, Carbon Dioxide 23.0, Anion Gap 8, BUN 27 H, Creatinine 1.12 H, Estim Creat Clear Calc 43.24, Est GFR (MDRD) Af Amer 63, Est GFR (MDRD) Non-Af 52 L, BUN/Creatinine Ratio 24.1 H, Glucose 115 H, Calcium 8.0 L Micro: Microbiology 12/11/22 22:25 Sputum, Induced/Lukens Gram Stain - Final 12/11/22 22:25 Sputum, Induced/Lukens Respiratory Culture - Final Mixed normal respiratory jaylen. No Streptococcus pneumoniae, beta-hemolytic Streptococcus or Staphylococcus aureus isolated. Physical Exam Const alert and no apparent distress HEENT normocephalic Eyes PERRL and conjunctivae normal Neck supple and no JVD Resp normal respiratory effort, no retractions and no use of accessory muscles Auscultation: Negative for rales, rhonchi or wheezes Cardio regular rate, regular rhythm, S1 normal heart sound, S2 normal heart sound, no murmurs, no rub and no gallops GI soft to palpation and non-distended; Negative for hepatosplenomegaly Extremity no clubbing, cyanosis or edema Skin no rashes or lesions noted Neuro oriented x3 and CN's II-XII intact bilaterally Charges/Coding Visit Charges Inpatient E&M: 85728 Subs Hosp L2
[2022-12-14] MEDS: Acetaminophen 325 MG Tablet 650 MG PO (08:24)
--- NOTE | 2022-12-14 09:05 | DCINST_ITS ---
Discharge Instructions Diet Discharge Diet: No restrictions Activity Discharge Activity: Return to Normal Activity Dressing / Incision Call your doctor if you observe: Fever of 101 or Higher, Shortness of breath, Dizziness, Fainting spells, Swelling in the ankles, Chest pain and Increased palpitations (irregular heartbeat) Follow Up Care Test Results: Test results from this visit will be discussed in further detail at your follow- up appointment, if applicable. Discharge Plan Admission Admit Date/Time: 12/11/22 20:44 Attending Provider: Cole Mackenzie Primary Care Provider: Marquita Telles Consulting Providers: Blaine Coto ; Vicente Cooper Discharge Orders/Prescriptions Prescriptions: New cephalexin 500 mg capsule 500 mg PO TID 6 Days Qty: 18 0RF Continued allopurinol 100 mg tablet Lumigan 0.01 % drops 1 drp EACH EYE QHS No Action cephalexin 500 MG capsule 500 mg PO Q6 Qty: 30 0RF Referrals / Follow Up: Jose De Jesus Abraham MD [Med Staff - Active Staff] - Within 2 Weeks Marquita Telles MD [Primary Care Provider] - Within 1 Week Disposition Disposition (needs filled in before D/C Order can be placed): Home, Self Care
--- NOTE | 2022-12-14 09:33 | CASEMGMT ---
NICKOLAS WHITMORE NOTE: Pt being discharged home. NICKOLAS CM to room to talk w/pt and . They deny having any discharge planning needs. Pt states is thankful to be going home. Tomasa LOZOYA RN CM
[2022-12-14] MEDS: Loratadine 10 MG Tablet PO (11:11)
[2022-12-14] MEDS: Famotidine 20 MG Tablet PO (11:11)
--- NOTE | 2022-12-14 12:29 | DS.PCM_ITS ---
Providers Date of Admission: 12/11/22 Primary Care Physician: Dr. 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 Distributive shock and acute hypoxic respiratory failure from angioedema ? The angioedema is likely secondary to her BREEZY inhibitor ? Currently extubated and doing well ? Pressors discontinued, continue with antibiotics ? Continue with IV fluids, will obtain a speech evaluation given her throat swelling and her attempted cricothyrotomy ? 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 Continue with Solu-Medrol and Pepcid 2. HTN/CKD 3B ? She was on lisinopril for hypertension, we will obviously discontinue ? Monitor renal function, creatinine appears to be at baseline DVT: Lovenox Medications at Discharge Home Medications cephalexin 500 mg capsule 500 mg PO Q6 #30 caps 10/18/20 allopurinol 100 mg tablet mg Check with primary doctor 12/13/22 bimatoprost 0.01 % eye drops (Lumigan) 1 drp EACH EYE QHS Check with primary doctor 12/13/22 cephalexin 500 mg capsule 500 mg PO TID 6 days #18 caps 12/14/22 Hospital Course Operations None Procedures Intubation and - (Attempted cricothyrotomy) Summary of Care Provided Minutes Spent on Discharge: 38 Hospital Course: Per HPI: ASTON NAPOLES, is a 67 F with a significant history of hypertension on BREEZY inhibitor who presented with swelling of her tongue that started about 1 hour PTO.? Associated with her symptoms Swas difficulty swallowing and change in voice.? Patient's symptoms was progressively worsening.? At the emergency department attempt was made to emergently intubate patient.? Initial attempts to intubate was unsuccessful so cricothyroidotomy was tried .? Cricothyrotomy membrane was not penetrated.? Patient was eventually intubated by anesthesia with a 6 ET tube. ENT who came to bedside also sutured up patient's opened neck tissue and recommended prophylactic IV antibiotics while inpatient and? for patient to be discharged home on p.o. antibiotics for a total of 10 days to prevent infection. Emergency department discussed the case with sizing machine operator who recommended Solu- Medrol Benadryl and Pepcid. History was taken from emergency department doctor and patient's as patient was intubated at the time of examination. Hospital Course: 1.? Distributive shock and acute hypoxic respiratory failure from angioedema ? The angioedema is likely secondary to her BREEZY inhibitor ? Currently extubated and doing well ? Pressors discontinued, continue with antibiotics ? Continue with IV fluids, will obtain a speech evaluation given her throat swelling and her attempted cricothyrotomy ? 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 Discussed her case with the sizing machine operator who felt that she was stable for discharge. I discussed with her the plan for discharge today she expressed understanding of the risk benefits of going home and would like to go home today. She is breathing well on her own and I do recommend she follow-up with ENT for the attempted cricothyrotomy that occurred in the ER that had to be repaired by them. Will continue with keflex 500 mg PO TID to complete 10 days. No need for steroids or Pepcid on discharge as she is doing well. She will need to follow-up with her hematology oncology consultant to determine blood pressure treatment since she can no longer be on lisinopril. 2.? HTN/CKD 3B from polycystic kidney disease ? She was on lisinopril for hypertension, we will obviously discontinue ? Monitor renal function, creatinine appears to be at baseline Physical Exam Narrative And general: Alert, Oriented x3, Cooperative, No apparent distress HEENT: Atraumatic, PERRLA, EOMI, Normocephalic, neck incision bandaged clean Oral: Moist Mucosa Neck: Supple, No JVD Lungs: Clear to auscultation, Normal air movement, No rhonchi, No wheeze, No rales Cardiovascular: Regular rate, Regular Rhythm, Normal S1, Normal S2, No murmurs Abdomen: Soft, Non Tender, Non-Distended, No Hepato-splenomegaly Extremities: No edema, Capillary Refill Less than 3 Seconds Skin: No rashes, No breakdown Musculoskeletal: No Tenderness to Palpation of Joints or Extremities Neurological: Cranial nerves II-XII grossly intact, Motor Exam 5/5 strength throughout, Sensory exam intact to light touch and pain Psych/Mental Status: Normal Affect, Appropriate Weight / BMI Weight Weight: 197 lb 8.547 oz Body Mass Index (BMI) 33.5 ABG / Lab / Microbiology Data Result Diagrams: 12/14/22 05:50 12/14/22 05:50 Laboratory: Laboratory Results - last 24 hr 12/14/22 05:50: WBC 12.8 H, RBC 3.60 L, Hgb 11.0 L, Hct 34.2 L, MCV 95.0, MCH 30.6, MCHC 32.2, RDW Std Deviation 46.8 H, RDW Coeff of Js 13.4, Plt Count 201, MPV 10.1, Immature Gran % (Auto) 1.300 H, Neut % (Auto) 82.2 H, Lymph % (Auto) 9.5 L, [place] % (Auto) 6.9, Eos % (Auto) 0.0, Baso % (Auto) 0.1, Absolute Neuts (auto) 10.5 H, Absolute Lymphs (auto) 1.22, Nucleated RBC % 0 12/14/22 05:50: Sodium 142, Potassium 4.2, Chloride 111 H, Carbon Dioxide 23.0, Anion Gap 8, BUN 27 H, Creatinine 1.12 H, Estim Creat Clear Calc 43.24, Est GFR (MDRD) Af Amer 63, Est GFR (MDRD) Non-Af 52 L, BUN/Creatinine Ratio 24.1 H, Glucose 115 H, Calcium 8.0 L Microbiology: Microbiology 12/11/22 22:25 Sputum, Induced/Lukens Gram Stain - Final 12/11/22 22:25 Sputum, Induced/Lukens Respiratory Culture - Final Mixed normal respiratory jaylen. No Streptococcus pneumoniae, beta-hemolytic Streptococcus or Staphylococcus aureus isolated. D/C Instructions Discharge Diet: No restrictions Call your doctor if you observe: Fever of 101 or Higher, Shortness of breath, Dizziness, Fainting spells, Swelling in the ankles, Chest pain and Increased palpitations (irregular heartbeat) Meaningful Use Info Meaningful Use Diagnoses (Choose all that apply): None applicable Discharge Plan Admission Admit Date/Time: 12/11/22 20:44 Attending Provider: Cole Mackenzie Primary Care Provider: Marquita Telles Consulting Providers: Blaine Coto ; Vicente Cooper Discharge Orders/Prescriptions Prescriptions: New cephalexin 500 mg capsule 500 mg PO TID 6 Days Qty: 18 0RF Continued allopurinol 100 mg tablet Lumigan 0.01 % drops 1 drp EACH EYE QHS No Action cephalexin 500 MG capsule 500 mg PO Q6 Qty: 30 0RF Referrals / Follow Up: Jose De Jesus Abraham MD [Med Staff - Active Staff] - Within 2 Weeks Marquita Telles MD [Primary Care Provider] - Within 1 Week Disposition Disposition (needs filled in before D/C Order can be placed): Home, Self Care Charges/Coding Visit Charges Inpatient E&M: 31910 Disch Hosp >30min
== END 2022-12-14 11:44 | disposition home or self-care (01) | DRG 915 ==
LOC: ED 21:05 → ICU 12-12 07:03
PROVIDERS: Internal Medicine Critical Care Medicine; Admitting Provider Hospitalist; Emergency Provider Emergency Medicine; PCP Family Medicine; Visit Provider Family Medicine
DX: T78.3XXA Angioneurotic edema, initial encounter (principal); J96.01 Acute respiratory failure with hypoxia; R57.8 Other shock; J98.11 Atelectasis; Q61.3 Polycystic kidney, unspecified; N18.32 Chronic kidney disease, stage 3b; I12.9 Hypertensive chronic kidney disease with stage 1 through stage 4 chronic kidney disease, or unspecified chronic kidney disease; F17.200 Nicotine dependence, unspecified, uncomplicated; T46.4X5A Adverse effect of angiotensin-converting-enzyme inhibitors, initial encounter; E66.9 Obesity, unspecified
CPT/HCPCS: 31500; 31720; 36600; 51702; 71045; 80048; 82550; 82803; 84478; 85025; 87070; 87205; 92526; 92610; 93005; 94002; 94003; 94660; 94762; 97162; 97163; 97166; 97530; 97802; 99252; 99285; J7030; J7050; A4216; G0463; J0330; J3010; J3490